=== PATIENT | male | born 1945 | race Caucasian/White ===

== ENCOUNTER 2018-08-17 06:05 | Day surgery (SDC) | payer MEDICARE ==
[~2018-08-17 06:05] MED LIST: Cyclopentolate 1% Opth Drop 2 ML BOT FS SCH; Fluorouracil 100 MG, Enoxaparin Sodium 25 MG, EPINEPHrine 0.3 MG in Ophthalmic Irrigati... FS SCH; Phenylephrine 2.5% Ophth Soln 5 ML BOT FS SCH
[2018-08-17] MEDS ORDERED: Cyclopentolate 1% Opth Drop 2 ML BOT ONE (06:30)
[2018-08-17] MEDS ORDERED: Phenylephrine 2.5% Ophth Soln 5 ML BOT ONE (06:30)
[2018-08-17] MEDS ORDERED: Fentanyl 100 MCG/2 ML VIAL ONE (06:36)
[2018-08-17] MEDS ORDERED: Midazolam HCl 2 mg/2 ml Vial ONE (06:36)
[2018-08-17] MEDS ORDERED: Bupivacaine 0.75% 10 ML AMP ONE (09:53)
[2018-08-17] MEDS ORDERED: Lidocaine 1% PF 5 ML VIAL ONE (09:53)
[2018-08-17] MEDS ORDERED: CEFAZOLIN 1 GM VIAL ONE (09:53)
[2018-08-17] MEDS ORDERED: Maxitrol 0.1% Opth Oint 3.5 GM TUBE ONE (09:53)
[2018-08-17] MEDS ORDERED: Lidocaine 4% PF 5 ML AMP ONE (09:53)
[2018-08-17] MEDS ORDERED: Sterile Water 10 ML VIAL ONE (09:53)
[2018-08-17] MEDS ORDERED: Indocyanine Green 25 MG/10 ML VIAL ONE (09:53)
[2018-08-17] MEDS ORDERED: PROPOFOL 200 MG/20 ML VIAL ONE (09:53)
[2018-08-17] MEDS ORDERED: Triamcinolone 40 MG/ML VIAL ONE (09:53)
--- NOTE | 2018-08-17 14:11 | OP ---
DATE OF PROCEDURE: 08/17/2018 PREOPERATIVE DIAGNOSIS: Macular hole, left eye. POSTOPERATIVE DIAGNOSIS: Macular hole, left eye. PROCEDURE PERFORMED: Pars plana vitrectomy and internal limiting membrane peel, left eye. ANESTHESIA: Local with monitored anesthesia care. PROCEDURE IN DETAIL: The patient was identified in the preoperative holding area. Appropriate informed consent for planned surgical procedure on the left eye had been obtained. The patient was transported to the operative suite where appropriate cardiopulmonary monitoring established. Local anesthesia was obtained using retrobulbar modified Van Lint lid block using 50:50 mixture of 4% Lidocaine and 0.75% bupivacaine. The patient was prepped and draped in the usual sterile manner for ophthalmic surgery, left eye. Lid speculum was placed in the left eye. A 25-gauge trocar was placed through the conjunctiva and sclera superotemporally, inferotemporally, and superonasally. Infusion line was placed inferotemporally. Light pipe vitreous cutter was inserted into the eye. Core vitrectomy was performed. Posterior hyaloid face was elevated. Indocyanine green dye was infused on the posterior pole identifying the internal limiting membrane and this was elevated using a membrane scraper, peeled across the macula in one piece, using end-gripping forceps and indirect ophthalmoscope was used to exam the retina 360 degrees. No holes, breaks, or tears were identified. 28% sulfur hexafluoride gas was infused into the eye. Trocars were removed. The eye was noted to retain pressure well. Retrobulbar Kenalog and subconjunctival Ancef were placed. Antibiotic ointment was placed. The eye was patched and shielded. The patient was taken to Postoperative Recovery Unit in good condition, having suffered no immediate perioperative complications. The patient was instructed to keep the patch and shield on, avoid lifting and bending. Followup appointment with Dr. Giraldo. Job ID: [id number]
== END 2018-08-17 08:55 | disposition home or self-care (01) ==
LOC: SDC 06:05
PROVIDERS: ATTEND Ophthalmology Retina Specialist
PROC: 08T53ZZ Resection of Left Vitreous, Percutaneous Approach (ICD-10-PCS; principal; 2018-08-17)
PROC: 08NF3ZZ Release Left Retina, Percutaneous Approach (ICD-10-PCS; 2018-08-17)
DX: H35.342 Macular cyst, hole, or pseudohole, left eye (principal)
CPT/HCPCS: 67025; J0171; J1650; J2250; J3010; J9190

== ENCOUNTER 2019-09-12 10:14 | Emergency (ER) | payer MEDICARE ==
[2019-09-12 12:09] LABS: #Basophils 0.1 thou/uL (0.0-0.2); #Eosinphils 0.3 thou/uL (0.0-0.7); #Lymphocytes 1.3 thou/uL (1.20-3.40); #Monocytes 0.8 thou/uL (0.11-0.59); #Neutrophils 5.7 thou/uL (1.40-6.50); %Basophils 0.8 % (0.0-1.0); %Lymphocytes 15.7 % (21.0-51.0); %Monocytes 9.4 % (0.0-10.0); %Neutrophils 70.1 % (42.0-75.0); Hemoglobin 12.2 g/dL (14.0-18.0); Mean Corpuscular HGB CONC 32.4 g/dL (32.0-36.0); Mean Corpuscular Hemoglobin 28.4 pg (27.0-31.0); Mean Corpuscular Volume 87.5 fL (78.0-98.0); Mean Platelet Volume 10.1 fL (7.4-10.4); Platelet Count 168 thou/uL (130-400); RBC Distribution Width 14.1 % (11.5-14.5); White Blood Cell (WBC) Count 8.2 thou/uL (4.8-10.8)
[2019-09-12 12:41] LABS: ALT (SGPT) 109 U/L (8-55); AST (SGOT) 56 U/L (5-34); Albumin 3.7 g/dL (3.4-4.8); Alkaline Phosphatase 74 U/L (40-110); Anion Gap 13 mmol/L (10-20); BUN (Urea Nitrogen) 17 mg/dL (8.4-25.7); Bilirubin, Total 0.5 mg/dL (0.2-1.2); Calc. Creatinine Clearance 0 mL/min (70-130); Calcium 8.8 mg/dL (7.8-10.44); Carbon Dioxide 22 mmol/L (23-31); Chloride 106 mmol/L (98-107); Estimated GFR-MDRD 74; Globulin 3.3 g/dL (2.4-3.5); Glucose 89 mg/dL (83-110); Lipase 177 U/L (8-78); Potassium 5.1 mmol/L (3.5-5.1); Sodium 136 mmol/L (136-145)
--- NOTE | 2019-09-12 13:33 | ULT ---
Sonogram right upper quadrant HISTORY: Right upper quadrant pain. FINDINGS: Multiple shadowing echogenic foci within the nondistended gallbladder. Gallbladder wall thi ckening without overdistention. No pericholecystic fluid evident. Common duct is 0.3 cm. Patient was reportedly not tender over the gallbladder fossa at the time of the exam. Liver is diffusely echogenic without focal mass or intrahepatic biliary dilatation. No free fluid. IMPRESSION: Cholelithiasis. No acute biliary obstruction. Hepatosteatosis.
[2019-09-12] MEDS ORDERED: Iopamidol-370 76% 500 ML 1 ML ONE (14:50)
--- NOTE | 2019-09-12 15:22 | CT ---
CT ABDOMEN AND PELVIS WITH IV CONTRAST: Date: 09/12/2019 HISTORY: Pancreatitis. FINDINGS: The lung bases are clear. No calcified gallstones are seen. The liver demonstrates decreased attenuat ion compared to the spleen consistent with fatty infiltration. There is a tiny calcified granuloma in the liver. The spleen, pancreas, adrenal glands, and kidneys are normal. No free air, free fluid, or lymphadenopathy seen in the abdomen or pelvis. There are vascular calcifications without evidence of aneurysmal dilatation of the abdominal aorta. No portosplenic thrombosis is seen. There are degenera tive changes in the spine. There is colonic diverticulosis without diverticulitis. A small fat-contai melba umbilical hernia is present. IMPRESSION: 1. No acute process. 2. Fatty liver. 3. Colonic diverticulosis. POS: H
== END 2019-09-12 15:40 | disposition home or self-care (01) ==
LOC: ERS 10:14
DX: K80.20 Calculus of gallbladder without cholecystitis without obstruction (principal); E78.5 Hyperlipidemia, unspecified
CPT/HCPCS: 74177; 76705; 80053; 83690; 85025; Q9967

== ENCOUNTER 2019-09-17 10:39 | Outpatient (CLI) | payer MEDICARE ==
[2019-09-17 13:00] LABS: #Basophils 0.1 thou/uL (0.0-0.2); #Eosinphils 0.3 thou/uL (0.0-0.7); #Lymphocytes 1.5 thou/uL (1.20-3.40); #Monocytes 0.5 thou/uL (0.11-0.59); #Neutrophils 3.5 thou/uL (1.40-6.50); %Basophils 1.3 % (0.0-1.0); %Lymphocytes 25.6 % (21.0-51.0); %Monocytes 8.4 % (0.0-10.0); %Neutrophils 59.7 % (42.0-75.0); Hemoglobin 12.7 g/dL (14.0-18.0); Mean Corpuscular HGB CONC 32.3 g/dL (32.0-36.0); Mean Corpuscular Hemoglobin 28.3 pg (27.0-31.0); Mean Corpuscular Volume 87.6 fL (78.0-98.0); Mean Platelet Volume 9.3 fL (7.4-10.4); Platelet Count 225 thou/uL (130-400); RBC Distribution Width 13.4 % (11.5-14.5); Red Blood Cell (RBC) Count 4.49 mill/uL (4.70-6.10); White Blood Cell (WBC) Count 5.9 thou/uL (4.8-10.8)
[2019-09-17 13:34] LABS: ALT (SGPT) 33 U/L (8-55); AST (SGOT) 19 U/L (5-34); Albumin 4.2 g/dL (3.4-4.8); Alkaline Phosphatase 64 U/L (40-110); Anion Gap 11 mmol/L (10-20); BUN (Urea Nitrogen) 16 mg/dL (8.4-25.7); Bilirubin, Direct 0.2 mg/dL (0.1-0.3); Bilirubin, Total 0.4 mg/dL (0.2-1.2); Calc. Creatinine Clearance 0 mL/min (70-130); Calcium 9.4 mg/dL (7.8-10.44); Carbon Dioxide 27 mmol/L (23-31); Chloride 105 mmol/L (98-107); Estimated GFR-MDRD 58; Glucose 123 mg/dL (83-110); Potassium 4.1 mmol/L (3.5-5.1); Protein, Total 7.2 g/dL (5.8-8.1); Sodium 139 mmol/L (136-145)
--- NOTE | 2019-09-19 13:39 | EKG ---
Test Reason : Blood Pressure : / mmHG Vent. Rate : 078 BPM Atrial Rate : 078 BPM P-R Int : 174 ms QRS Dur : 082 ms QT Int : 400 ms P-R-T Axes : 052 -26 082 degrees QTc Int : 456 ms Normal sinus rhythm Inferior infarct , age undetermined Possible Anterior infarct , age undetermined Abnormal ECG No previous ECGs available Confirmed by VALERIA CRANE (2) on 09/19/2019 1:39:10 PM Referred By: PANCHO Confirmed By:VALERIA CRANE
== END 2019-09-17 10:40 | disposition home or self-care (01) ==
LOC: LABBT 10:39
PROVIDERS: ATTEND Surgery
DX: Z01.818 Encounter for other preprocedural examination (principal); K80.20 Calculus of gallbladder without cholecystitis without obstruction
CPT/HCPCS: 80048; 80076; 85025; 93005; 93010

== ENCOUNTER 2019-09-20 08:16 | Observation (INO) | payer MEDICARE ==
[2019-09-17 12:24] VITALS: BMI 30.2
[2019-09-20] MEDS ORDERED: ceFOXitin 2 GM/50 ML Duplex BAG ONE (10:42)
[2019-09-20] MEDS ORDERED: Fentanyl 250 MCG/5 ML VIAL ONE (11:16)
[2019-09-20] MEDS ORDERED: Iothalamate Meglumine 60% 50 ML VIAL FS ONE (11:17)
[2019-09-20] MEDS ORDERED: Bupivacaine 0.25% HCL 30 ML VIAL ONE (11:17)
[2019-09-20] MEDS ORDERED: Lidocaine 1% w/Epinephrine 1:100K 20 ML VIAL ONE (11:17)
--- NOTE | 2019-09-20 12:44 | RAD ---
EXAM: Cholangiogram in surgery HISTORY: Cholelithiasis COMPARISON: 09/12/2019 CT abdomen/pelvis FINDINGS: Limited intraoperative fluoroscopic views were taken during a cholangiogram in surgery. The common bile duct is normal in caliber No leakage from the common bile duct. Contrast is not seen passing into the duodenum. There is squaring off of the distal common bile duct near the ampulla of Vater. No abnormality of the intrahepatic bile ducts. IMPRESSION: No passage of contrast into the duodenum. A distal common bile duct stone cannot be exclu ded.
[2019-09-20] MEDS ORDERED: Promethazine HCl 25 MG/ML VIAL IM PRN ×2 (12:47→13:09)
[2019-09-20] MEDS ORDERED: Promethazine HCl 25 MG/ML VIAL SLOW IVP PRN (12:47)
[2019-09-20] MEDS ORDERED: Ondansetron HCl/PF 4 MG/2 ML Vial IVP PRN (12:47)
[2019-09-20] MEDS ORDERED: Morphine Sulfate 2 MG/ML SYRINGE SLOW IVP PRN (12:47)
[2019-09-20] MEDS ORDERED: Fentanyl 100 MCG/2 ML VIAL ONE (13:00)
[2019-09-20] MEDS ORDERED: Mag-Al 1200 mg/1200 mg/30 ML UDCUP PO PRN (13:09)
[2019-09-20] MEDS ORDERED: Morphine 4 MG/ML VIAL SLOW IVP PRN (13:09)
[2019-09-20] MEDS ORDERED: HYDROcodone/Acetaminophen 7.5/325 mg Tablet PO PRN (13:09)
[2019-09-20] MEDS ORDERED: traMADol HCl 50 MG TAB PO PRN (13:09)
[2019-09-20] MEDS ORDERED: Dextrose 50% Abboject 50 ML SYRINGE SLOW IVP PRN (13:09)
[2019-09-20] MEDS ORDERED: Calcium Carbonate 500 MG ChewTAB PO PRN (13:09)
[2019-09-20] MEDS ORDERED: Ondansetron PF 4 MG/2 ML Vial IVP PRN (13:09)
[2019-09-20] MEDS ORDERED: hydrALAZINE 20 MG/ML VIAL SLOW IVP PRN (13:09)
[2019-09-20] MEDS ORDERED: Morphine 2 MG/ML SYRINGE SLOW IVP PRN (13:09)
[2019-09-20] MEDS ORDERED: Dextrose 5% in Water 1,000 ML IV PRN (13:09)
[2019-09-20] MEDS ORDERED: Rocuronium Bromide 10 MG/ML (10ML VIAL) ONE (14:25)
[2019-09-20] MEDS ORDERED: Glycopyrrolate 0.2 MG/ML 5 ML SYRINGE ONE (14:25)
[2019-09-20] MEDS ORDERED: Dexamethasone 20 MG/5 ML VIAL ONE (14:25)
[2019-09-20] MEDS ORDERED: Labetalol HCl 100 MG/20 ML VIAL ONE (14:25)
[2019-09-20] MEDS ORDERED: Ondansetron PF 4 MG/2 ML Vial ONE (14:25)
[2019-09-20] MEDS ORDERED: PROPOFOL 200 MG/20 ML VIAL ONE (14:25)
[2019-09-20] MEDS: Sodium Chloride 0.9% 1,000 ML IV SCH ×2 (16:09→21:04)
--- NOTE | 2019-09-20 17:44 | CON ---
DATE OF CONSULTATION: 09/20/2019 REQUESTING PHYSICIAN: Yahir Farfan MD REASON FOR CONSULTATION: Positive intraoperative cholangiogram. HISTORY OF PRESENT ILLNESS: Rock Plummer is a very pleasant 74-year-old man, admitted to the hospital today postoperatively after uncomplicated laparoscopic cholecystectomy. The patient has been having intermittent episodes of severe upper abdominal pain and nausea postprandially for several weeks. Recent ER evaluation on 09/12 demonstrated cholelithiasis on ultrasound and some mild elevation in LFTs with lipase elevated to 177. He subsequently saw Dr. Farfan and was scheduled for laparoscopic cholecystectomy, which was performed earlier today. Notably, repeat labs from three days ago showed LFTs were normal. Laparoscopic cholecystectomy went well without complications, but on intraoperative cholangiogram, it appeared that there is a distal common bile duct stone with failure of contrast flow into the duodenum, so the patient was admitted and we were consulted for consideration of ERCP. The patient is currently doing well. Abdominal discomfort is minimal. There is no nausea. He is tolerating clear liquids and has no other complaints. PAST MEDICAL HISTORY: Hyperlipidemia, prostatectomy, retina surgery, and colon polyps, with last colonoscopy 2015, and five year followup recommended. ALLERGIES: NO KNOWN DRUG ALLERGIES. OUTPATIENT MEDICATIONS: 1. Zetia. 2. Alprazolam. 3. Pantoprazole 40 mg daily. 4. Aspirin 81 mg daily. SOCIAL HISTORY: The patient lives with his . FAMILY HISTORY: Noncontributory. PHYSICAL EXAMINATION: VITAL SIGNS: Temperature 97.7, pulse 54, blood pressure 105/63, and 98% oxygen saturation on room air. GENERAL: A 74-year-old man, lying in bed comfortably, in no distress. MENTAL: He is alert and fully oriented. Pleasant, conversational. SKIN: No jaundice. No rashes were palpable. HEENT: Eyes, no scleral icterus. Extraocular movements intact. ENT, mucous membranes moist. No oral lesions. LYMPH: No submandibular or supraclavicular lymphadenopathy. THYROID: Nontender to palpation. HEART: Regular rate and rhythm. LUNGS: Clear to auscultation bilaterally. ABDOMEN: Incision sites look good. Bowel sounds hypoactive. Soft. Minimal tenderness to palpation. EXTREMITIES: No peripheral edema. VESSELS: Radial pulses 2+ bilaterally. NEURO: Cranial nerves 2 through 12 intact bilaterally. No focal deficits. LABORATORY DATA: Laboratory studies are from 09/17/2019 demonstrated WBC 5.9, hemoglobin 12.7, and platelets 225. Sodium 139, potassium 4.1, BUN 16, and creatinine 1.21. Normal LFTs with total bilirubin 0.4, alkaline phosphatase 64, AST 19, and ALT 33. Note that labs from five days prior on 09/12/2019, had demonstrated LFT elevation with AST 56, ALT 109, alkaline phosphatase 74, total bilirubin 0.5, and lipase is elevated at that time to 177. IMAGING STUDIES: 09/12/2019, ultrasound demonstrated cholelithiasis with normal common bile duct measuring [address] scan on that same date demonstrated fatty liver and diverticulosis. Normal-appearing spleen and pancreas. No acute processes. Intraoperative cholangiogram from earlier today demonstrates some squaring off contrast dye in the distal common bile duct suspicious for retained stone, with no flow of contrast from the bile duct into the bowel. ASSESSMENT AND PLAN: 1. Choledocholithiasis, based on positive intraoperative cholangiogram earlier today. 2. Cholelithiasis, status post laparoscopic cholecystectomy earlier today. I had a long discussion with the patient and his regarding the choledocholithiasis. Endoscopic retrograde cholangiopancreatography is indicated for biliary sphincterotomy and clearance of the common bile duct. We discussed risks of endoscopic retrograde cholangiopancreatography including post endoscopic retrograde cholangiopancreatography pancreatitis, but he is going to remain at risk for this, if we do not perform endoscopic retrograde cholangiopancreatography. The patient desires to proceed. We will plan for the procedure tomorrow, have the patient n.p.o. after midnight. Thank you for the consultation. Please call anytime with questions or concerns. Job ID: [id number]
[2019-09-20] MEDS ORDERED: ALPRAZolam 0.25 MG TAB PO SCH (21:00)
[2019-09-20] MEDS ORDERED: Famotidine 20 MG TAB PO SCH (21:00)
[2019-09-20] MEDS ORDERED: Famotidine/PF 20 mg/2ml Vial SLOW IVP SCH (21:00)
[2019-09-20] MEDS ORDERED: Ezetimibe 10 MG TAB PO SCH (21:00)
[2019-09-21] MEDS: Sodium Chloride 0.9% 1,000 ML IV SCH (03:48)
[2019-09-21 05:10] LABS: #Lymphocytes 1.6 thou/uL (1.20-3.40); #Neutrophils 8.8 thou/uL (1.40-6.50); %Basophils 0.4 % (0.0-1.0); %Eosinophils 0.2 % (0.0-10.0); %Lymphocytes 13.8 % (21.0-51.0); %Monocytes 8.9 % (0.0-10.0); %Neutrophils 76.8 % (42.0-75.0); Hemoglobin 12.3 g/dL (14.0-18.0); Mean Corpuscular HGB CONC 31.8 g/dL (32.0-36.0); Mean Corpuscular Hemoglobin 27.8 pg (27.0-31.0); Mean Corpuscular Volume 87.4 fL (78.0-98.0); Mean Platelet Volume 9.4 fL (7.4-10.4); Platelet Count 263 thou/uL (130-400); RBC Distribution Width 13.5 % (11.5-14.5); Red Blood Cell (RBC) Count 4.41 mill/uL (4.70-6.10); White Blood Cell (WBC) Count 11.4 thou/uL (4.8-10.8)
[2019-09-21 05:39] LABS: ALT (SGPT) 46 U/L (8-55); AST (SGOT) 41 U/L (5-34); Albumin 3.9 g/dL (3.4-4.8); Alkaline Phosphatase 61 U/L (40-110); Anion Gap 13 mmol/L (10-20); BUN (Urea Nitrogen) 13 mg/dL (8.4-25.7); Bilirubin, Total 0.4 mg/dL (0.2-1.2); Calc. Creatinine Clearance 73 mL/min (70-130); Calcium 8.8 mg/dL (7.8-10.44); Carbon Dioxide 25 mmol/L (23-31); Chloride 104 mmol/L (98-107); Estimated GFR-MDRD 63; Globulin 2.9 g/dL (2.4-3.5); Glucose 121 mg/dL (83-110); Lipase 211 U/L (8-78); Protein, Total 6.8 g/dL (5.8-8.1); Sodium 138 mmol/L (136-145)
[2019-09-21] MEDS ORDERED: Indomethacin 50 MG SUPP ONE (08:50)
[2019-09-21] MEDS ORDERED: Iothalamate Meglumine 60% 50 ML VIAL FS ONE (08:50)
[2019-09-21] MEDS ORDERED: Fentanyl 100 MCG/2 ML VIAL ONE (08:54)
[2019-09-21] MEDS ORDERED: Meperidine HCl/PF 25 MG/ML VIAL SLOW IVP PRN (09:48)
[2019-09-21] MEDS ORDERED: PACU-Morphine 4MG/ML VIAL SLOW IVP PRN (09:48)
[2019-09-21] MEDS ORDERED: Promethazine HCl 25 MG/ML VIAL IM PRN ×2 (09:48→10:14)
[2019-09-21] MEDS ORDERED: Promethazine HCl 25 MG/ML VIAL SLOW IVP PRN ×2 (09:48→10:14)
[2019-09-21] MEDS ORDERED: Ondansetron HCl/PF 4 MG/2 ML Vial IVP PRN (10:14)
--- NOTE | 2019-09-21 10:56 | OP ---
DATE OF PROCEDURE: 09/21/2019 [employer] EXPORT CLERK SURGEON: None. PROCEDURE: ERCP with biliary sphincterotomy and balloon sweep of common bile duct. INDICATIONS FOR PROCEDURE: Choledocholithiasis, based on positive intraoperative cholangiogram yesterday. MEDICATIONS: 1. See Anesthesia record. 2. Indomethacin 100 mg per rectum, as periprocedural prophylaxis for post ERCP pancreatitis. FINDINGS: After discussion of the risks, benefits, and alternatives of the procedure, informed consent was obtained and witnessed. Pre-endoscopic cardiopulmonary examination was satisfactory. Time-out was performed before sedation was achieved. Sedation was achieved with Anesthesia assistance in the endoscopy unit. The patient was placed in a semiprone position on the fluoroscopy table under general anesthesia. A Pentax adult side-viewing duodenoscope was inserted into the mouth and passed beyond the esophagus and stomach and into the second portion of the duodenum. Indirect views of the gastric and duodenal mucosa appeared normal. The ampulla was brought into view with the endoscope in the short position. The ampulla appears normal, though a bit small. Using a triple lumen dome tip sphincterotome and a 0.035 guidewire, we were able to selectively cannulate the common bile duct. The wire was passed up into the right intrahepatic system. Cholangiogram was then performed. There were no obvious filling defects in a nondilated common bile duct. Even so, given his recent imaging findings, we did proceed with biliary sphincterotomy. Biliary sphincterotomy was performed easily with no complication. At this point, a wire exchange was performed, exchanging the sphincterotome for a 9 to 12 mm extraction balloon. This was passed up the common bile duct. Multiple sweeps were made of the common bile duct with the balloon fully inflated. The balloon passed out of the ampulla site quite easily. There was no biliary sludge and no stones extracted. Occlusion cholangiogram demonstrated the bile duct was clear. One final sweep was performed to sweep out excess contrast and the procedure was completed. The working apparatus was withdrawn, and the endoscope was withdrawn suctioning out excess air and fluid. Postprocedure fluoroscopic images demonstrated no retroperitoneal or subdiaphragmatic free air. The patient tolerated the procedure well. There were no immediate postprocedure complications. IMPRESSION: 1. Normal ERCP. 2. Successful biliary sphincterotomy and clear balloon sweep of the common bile duct. RECOMMENDATION: 1. Advance diet as tolerated. 2. Monitor for any potential complications, including post ERCP pancreatitis. 3. Disposition per the Surgical Service. From the GI perspective, if he is tolerating diet and feeling well this afternoon, he could potentially be discharged from the hospital. Job ID: [id number]
[2019-09-21] MEDS ORDERED: Ketorolac Tromethamine 30 MG/ML VIAL ONE (12:24)
[2019-09-21] MEDS ORDERED: Dexamethasone 20 MG/5 ML VIAL ONE (12:24)
[2019-09-21] MEDS ORDERED: Lidocaine 1% PF 5 ML VIAL ONE (12:24)
[2019-09-21] MEDS ORDERED: Rocuronium Bromide 10 MG/ML (10ML VIAL) ONE (12:24)
[2019-09-21] MEDS ORDERED: ePHEDrine/0.9% NaCl/PF SYRINGE 50 mg/10 ml ONE (12:24)
[2019-09-21] MEDS ORDERED: PHENYLEPHRINE-NS 100 MCG/ML 10 ML SYRINGE ONE (12:24)
[2019-09-21] MEDS ORDERED: Glycopyrrolate 0.2 MG/ML 5 ML SYRINGE ONE (12:24)
[2019-09-21] MEDS ORDERED: PROPOFOL 200 MG/20 ML VIAL ONE (12:24)
[2019-09-21] MEDS ORDERED: Ondansetron PF 4 MG/2 ML Vial ONE (12:24)
[2019-09-21 14:07] VITALS: TEMP 97.2
[2019-09-21 14:09] VITALS: BP 126/77
--- NOTE | 2019-09-22 02:29 | DIS ---
DATE OF ADMISSION: 09/20/2019 DATE OF DISCHARGE: 09/21/2019 ADMISSION DIAGNOSES: 1. Cholelithiasis. 2. Choledocholithiasis. DISCHARGE DIAGNOSES: 1. Cholelithiasis. 2. Choledocholithiasis. PROCEDURES: 1. Laparoscopic cholecystectomy with cholangiogram by Dr. Farfan without complication on 09/20/2019. 2. On 09/21/2019, ERCP, sphincterotomy by Dr. Molina without complication. CONDITION ON DISCHARGE: Improved. HOSPITAL COURSE: The patient presented with elective laparoscopic cholecystectomy with intraoperative cholangiogram. He had preop elevation of his lipase. He had dilation of his common bile duct. At the time of surgery, he was found to have a dilated common bile duct. He was kept in the hospital and Dr. Molina was consulted for ERCP. He underwent ERCP, sphincterotomy. There was no residual stone in the bile duct by the time of the ERCP. He is doing well. He is discharged home. I sent over prescriptions for [place] and Zofran to his pharmacy. He will follow up with me in the office in 2 weeks. Job ID: [id number]
--- NOTE | 2019-09-25 11:52 | OP ---
DATE OF PROCEDURE: 09/20/2019 PREOPERATIVE DIAGNOSES: 1. Symptomatic gallstones. 2. History of elevated lipase. POSTOPERATIVE DIAGNOSES: 1. Symptomatic gallstones. 2. History of elevated lipase. PROCEDURE PERFORMED: Laparoscopic cholecystectomy with intraoperative cholangiogram. ANESTHESIA: General. ESTIMATED BLOOD LOSS: Minimal. COMPLICATIONS: None. SPECIMEN: Gallbladder. FINDINGS: Distal common bile duct stone obstructing. DESCRIPTION OF PROCEDURE: The patient was taken to the operating room and laid supine on the table. After general anesthetic was obtained, the abdomen was prepped and draped in a sterile fashion. A straight incision was made above the umbilicus through previous incision. The patient had a small incisional hernia from previous laparoscopic surgery. The 12-mm balloon trocar was placed. High-flow pneumoperitoneum was obtained. Upper midline 5 mm ports were placed. The gallbladder was retracted from the gallbladder fossa. The peritoneum was opened anteriorly and posteriorly. The critical view of triangle was seen, showing only the cystic duct and cystic artery branching medial to lateral. No other branching structures. Two clips were placed proximally on the cystic duct and one laterally. It was cut using laparoscopic scissors. In the cystic duct, a clip was placed high on it. A small ductotomy was made just proximal to that. A cholangiocatheter was brought in through a separate stab incision and placed in the cystic duct and a cholangiogram was performed, which showed a distal common bile duct stone and dilated common bile duct, really minimal by exit into the duodenum. Glucagon was given and the duct was flushed with saline with still no contrast getting into the duodenum. The cholangiocatheter was removed and 2 clips were placed proximally on the cystic duct. It was cut using laparoscopic scissors. Cautery was used to dissect the gallbladder from the gallbladder fossa. Gallbladder was placed in the EndoCatch bag and brought out through the Joellen. All ports were infiltrated using local anesthetic. There was no bleeding. All ports were removed under camera visualization and pneumoperitoneum was let down. The incisional hernia was closed primarily using PDS interrupted sutures. All incisions were irrigated and closed using 4-0 Monocryl and Dermabond. The patient will need ERCP. The patient was sent to Recovery in stable condition. All instrument counts, needle counts, and lap counts were correct. Job ID: [id number]
== END 2019-09-21 14:15 | disposition home or self-care (01) ==
LOC: SDC 08:16 → SURG A 12:25
PROVIDERS: ADMIT Surgery; ATTEND Surgery
PROC: 0FT44ZZ Resection of Gallbladder, Percutaneous Endoscopic Approach (ICD-10-PCS; principal; 2019-09-21)
PROC: BF121ZZ Fluoroscopy of Gallbladder using Low Osmolar Contrast (ICD-10-PCS; 2019-09-21)
PROC: 0F798ZZ Dilation of Common Bile Duct, Via Natural or Artificial Opening Endoscopic (ICD-10-PCS; 2019-09-21)
PROC: 0F798ZZ Dilation of Common Bile Duct, Via Natural or Artificial Opening Endoscopic (ICD-10-PCS; 2019-09-21)
DX: K80.64 Calculus of gallbladder and bile duct with chronic cholecystitis without obstruction (principal); E78.5 Hyperlipidemia, unspecified; Z79.899 Other long term (current) drug therapy
CPT/HCPCS: 43262; 47532; 47563; 76000; 80053; 83690; 85025; 88304; G0378 ×2; J1610; 36415; J0694; J1100; J1885; J2001; J2405; J2704; J3010; S0020

== ENCOUNTER 2022-08-16 09:23 | Outpatient (CLI) | payer MEDICARE | END 2022-08-16 09:24 | disposition home or self-care (01) | LOC: BICMAMMO 09:23 | PROVIDERS: ATTEND Internal Medicine | DX: M85.80 Other specified disorders of bone density and structure, unspecified site (principal) | CPT/HCPCS: 77080 ==

== ENCOUNTER 2024-12-27 08:17 | Outpatient (CLI) | payer MEDICARE | END 2024-12-27 08:18 | disposition home or self-care (01) | LOC: BICMAMMO 08:17 | PROVIDERS: ATTEND Internal Medicine | DX: Z13.820 Encounter for screening for osteoporosis (principal); Z79.818 Long term (current) use of other agents affecting estrogen receptors and estrogen levels | CPT/HCPCS: 77080 ==